=== PATIENT | female | born 1945 ===

== ENCOUNTER 2017-05-20 13:01 | Outpatient (CLI) | payer OTHER ==
[~2017-05-20 13:01] MED LIST: ASPIRIN EC325 MG; COUMADIN4 MG; GLIPIZIDE5 MG; LIPITOR20 MG; LOTREL 5-20 MG1 CAP; MICRONASE5 MG; TENORMIN25 MG; TRENTAL; XARELTO20 MG; [UNRECOGNIZED DRUG - OTHER]
== END 2017-05-20 17:00 | disposition home or self-care (01) ==
LOC: MRI 13:01
DX: M54.41 Lumbago with sciatica, right side (principal); M54.42 Lumbago with sciatica, left side
CPT/HCPCS: 72148